=== PATIENT | female | born 1975 | race Two or more races ===

== ENCOUNTER 2021-05-29 10:35 | Outpatient (CLI) | payer OTHER | END 2021-05-29 11:35 | disposition home or self-care (01) | LOC: PPH VACUNA 10:35 | PROVIDERS: ATTEND Emergency Medicine Pediatric Emergency Medicine | DX: Z23 Encounter for immunization (principal) ==

== ENCOUNTER 2021-07-08 14:55 | Emergency (ER) | payer OTHER ==
[~2021-07-08] VITALS: Ht 180.3 cm; Wt 127.0 kg
[2021-07-08] MEDS ORDERED: TOPROL XL25 M1 (14:59)
== END 2021-07-08 16:30 | disposition home or self-care (01) ==
LOC: ER 14:55
DX: B34.9 Viral infection, unspecified (principal); I10 Essential (primary) hypertension

== ENCOUNTER 2021-08-08 15:48 | Emergency (ER) | payer OTHER ==
[~2021-08-08] VITALS: Ht 180.3 cm; Wt 129.3 kg
[~2021-08-08 15:48] MED LIST: TOPROL XL25 M1
== END 2021-08-08 18:13 | disposition home or self-care (01) ==
LOC: ER 15:48
DX: M25.531 Pain in right wrist (principal)

== ENCOUNTER 2021-12-29 09:48 | Emergency (ER) | payer OTHER ==
[~2021-12-29] VITALS: Ht 180.3 cm; Wt 117.9 kg
== END 2021-12-29 11:04 | disposition home or self-care (01) ==
LOC: ER 09:48
DX: M62.830 Muscle spasm of back (principal); I10 Essential (primary) hypertension; Z88.0 Allergy status to penicillin

== ENCOUNTER 2022-04-23 08:57 | Emergency (ER) | payer OTHER | END 2022-04-23 12:20 | disposition home or self-care (01) | LOC: ER 08:57 | DX: M79.662 Pain in left lower leg (principal); I87.2 Venous insufficiency (chronic) (peripheral); I83.92 Asymptomatic varicose veins of left lower extremity; Z88.0 Allergy status to penicillin; M25.562 Pain in left knee ==

== ENCOUNTER 2022-09-26 09:10 | Outpatient (CLI) | payer OTHER | END 2022-09-26 09:25 | disposition home or self-care (01) | LOC: PPH VACUNA 09:10 | PROVIDERS: ATTEND Emergency Medicine Pediatric Emergency Medicine | DX: Z23 Encounter for immunization (principal) ==

== ENCOUNTER 2023-05-05 12:49 | Emergency (ER) | payer OTHER ==
[~2023-05-05] VITALS: Ht 180.3 cm; Wt 131.5 kg
[2023-05-05] MEDS ORDERED: ADVIL DUAL ACT1 EACH PO (15:02)
== END 2023-05-05 15:17 | disposition home or self-care (01) ==
LOC: ER 12:49
DX: M77.8 Other enthesopathies, not elsewhere classified (principal); M75.31 Calcific tendinitis of right shoulder; M75.51 Bursitis of right shoulder; Z88.0 Allergy status to penicillin

== ENCOUNTER 2023-07-07 09:13 | Outpatient (CLI) | payer OTHER ==
[~2023-07-07 09:13] MED LIST changes: +ADVIL DUAL ACT1 EACH PO
== END 2023-07-07 09:14 | disposition home or self-care (01) ==
LOC: LAB 09:13
PROVIDERS: ATTEND General Practice
DX: B34.9 Viral infection, unspecified (principal); Z88.0 Allergy status to penicillin

== ENCOUNTER 2023-10-27 09:03 | Emergency (ER) | payer OTHER ==
[~2023-10-27] VITALS: Ht 180.3 cm; Wt 133.8 kg
[2023-10-27 09:37] LABS: HEMATOCRIT 38.2 % (36.0-45.00); MEAN CORPUSCULAR HEMOGLOBIN 24.9 pg (27.00-32.0); MEAN CORPUSCULAR HGB CONC 31.5 g/dl (32.0-36.0); PLATELET COUNT 335 K/uL (150-450); RED BLOOD COUNT 4.83 M/uL (4.00-6.00)
[2023-10-27 09:58] LABS: RED CELL DISTRIBUTION WIDTH 17.1 % (11.5-14.5)
== END 2023-10-27 10:05 | disposition home or self-care (01) ==
LOC: ER 09:03
PROVIDERS: Emergency Medicine
DX: U07.1 COVID-19 (principal); I10 Essential (primary) hypertension; Z88.0 Allergy status to penicillin